=== PATIENT | male | born 1995 | race Two or more races ===

== ENCOUNTER → 2017-09-11 | Outpatient (CLI) | payer SELFPAY ==
[~2017-09-11] MED LIST: CRUTCH4 USE; IBUP600 PO; OXYACE5T PO; RXOXYACE PO
[2017-09-11 16:11] LABS: Specimen Source URINE
[2017-09-13 03:33] LABS: Source Urine
== END ==
LOC: LAB SHORT 16:10
PROVIDERS: Physician Assistant Medical
DX: Z20.9 Contact with and (suspected) exposure to unspecified communicable disease (principal)
CPT/HCPCS: 87491; 87591

== ENCOUNTER → 2017-11-23 | Outpatient (CLI) | payer SELFPAY ==
[2017-11-23 11:24] LABS: Specimen Source URINE
[2017-11-24 02:23] LABS: Source Urine
== END | disposition home or self-care (01) ==
LOC: LAB EV 11:22
PROVIDERS: Physician Assistant Surgical
DX: Z72.51 High risk heterosexual behavior (principal)
CPT/HCPCS: 87491; 87591